=== PATIENT | female | born 1960 | race Caucasian/White ===

== ENCOUNTER 2021-01-28 19:41 | Emergency (ER) | payer OTHER ==
[~2021-01-28 19:41] MED LIST: MUCINEX DM ER1 EAC1 PO; OMNICEF 300 MG300 MG PO
[2021-01-28 20:16] LABS: HEMOGLOBIN 13.9 gm/dl (12.3-15.3); RED BLOOD COUNT 4.45 M/UL (4.00-5.10); WHITE BLOOD COUNT 11.2 K/UL (4.5-11.0)
[2021-01-28 20:46] LABS: BUN/CREATININE RATIO 14 (0-10)
[2021-01-29] MEDS ORDERED: ZOFRAN4 MG PO (01:15)
[2021-01-29] MEDS ORDERED: PEPCID40 MG PO (01:15)
== END 2021-01-29 01:38 | disposition home or self-care (01) ==
LOC: ER1 19:41
PROVIDERS: Physician Assistant
DX: K21.9 Gastro-esophageal reflux disease without esophagitis (principal); J44.9 Chronic obstructive pulmonary disease, unspecified; E11.40 Type 2 diabetes mellitus with diabetic neuropathy, unspecified; F17.210 Nicotine dependence, cigarettes, uncomplicated; Z20.822 Contact with and (suspected) exposure to COVID-19; Z86.711 Personal history of pulmonary embolism; Z90.49 Acquired absence of other specified parts of digestive tract; Z90.710 Acquired absence of both cervix and uterus; Z88.0 Allergy status to penicillin; Z88.8 Allergy status to other drugs, medicaments and biological substances
CPT/HCPCS: 70450; 80053; 81001; 82550; 82553; 83690; 83874; 84484; 85025; 87086; 93005; 96374; 99284; J2405; J7030; Q9967; U0002